=== PATIENT | male | born 1960 | race Caucasian/White ===

== ENCOUNTER 2018-11-23 08:39 | Day surgery (SDC) | payer BC ==
[~2018-11-23] VITALS: Ht 180.3 cm; Wt 82.6 kg
[2018-11-23 08:50] VITALS: BP 129/70
[2018-11-23] MEDS ORDERED: LIDOcaine 1% 30ml preserv. free vial IJ STA (08:50)
[2018-11-23] MEDS ORDERED: CYAN100070 PO (09:06)
[2018-11-23] MEDS ORDERED: IBUP-1984 PO (09:06)
[2018-11-23] MEDS ORDERED: MULT-1074 PO (09:06)
[2018-11-23] MEDS ORDERED: LACT1CAP65 PO (09:06)
[2018-11-23] MEDS ORDERED: LISI10TA4 PO (09:06)
[2018-11-23] MEDS ORDERED: LIDOcaine 1% (10mg/ml) 2ml vial SQ ONE (09:30)
[2018-11-23] MEDS ORDERED: midazolam 2 mg/2 ml injection IV PRN (09:30)
[2018-11-23] MEDS ORDERED: fentaNYL/PF 50MCG/1 ML 2ML syringe IV PRN (09:30)
[2018-11-23 09:35] VITALS: BP 149/89
[2018-11-23 09:59] VITALS: BP 138/79
[2018-11-23 10:02] VITALS: BP 136/80
[2018-11-23 10:09] VITALS: BP 132/84
[2018-11-23 10:15] VITALS: BP 137/76
== END 2018-11-23 10:30 | disposition home or self-care (01) ==
LOC: SSTAY O 08:39
PROVIDERS: ATTEND Radiology Vascular & Interventional Radiology
DX: R22.1 Localized swelling, mass and lump, neck (principal); C7A.1 Malignant poorly differentiated neuroendocrine tumors; Z79.899 Other long term (current) drug therapy
CPT/HCPCS: 38505; 76942; 88305